=== PATIENT | male | born 1965 | race Caucasian/White ===

== ENCOUNTER 2018-01-30 11:53 | Emergency (ER) | END 2018-01-30 16:12 | disposition home or self-care (01) ==

== ENCOUNTER 2018-11-07 15:25 | Emergency (ER) | payer BC, OTHER ==
[~2018-11-07] VITALS: Ht 177.8 cm; Wt 94.5 kg
[~2018-11-07 15:25] MED LIST: DOCU-144 PO; IBUP-1542 PO; MINE133E23 PR; POLY17PO6 PO
[2018-11-07 15:27] VITALS: Ht 177.8 cm; Wt 94.5 kg
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
[2018-11-07 17:07] VITALS: BP 121/88; PULSE 82; RESP 18
== END 2018-11-07 17:08 | disposition home or self-care (01) ==
LOC: E/R 15:25
DX: K59.00 Constipation, unspecified (principal); Z87.891 Personal history of nicotine dependence
CPT/HCPCS: 99282